=== PATIENT | male | born 1965 | race Caucasian/White ===

== ENCOUNTER 2021-09-12 07:58 | Day surgery (SDC) | payer BC ==
[2021-09-12] MEDS ORDERED: Sodium Chloride 0.9(Preservative Free) 10 ML IJ ONE (07:59)
[2021-09-12] MEDS ORDERED: XYLOCAINE-MPF 1% 5ML SDV IJ ONE (07:59)
[2021-09-12] MEDS ORDERED: Depo-Medrol 40 MG/ML IM ONE (07:59)
[2021-09-12] MEDS ORDERED: DIPRIVAN 200 MG/20 ML IV ONE (10:17)
[2021-09-12] MEDS ORDERED: Lactated Ringers 1,000 ML IV ONE (10:53)
--- NOTE | 2021-09-12 12:00 | XRAY ---
Indication: Lumbar CECI. Intraoperative fluoroscopy provided for 18 seconds. 2 digital spot images submitted for interpretation demonstrate midline posterior needle tip just posterior to L3-L4 interspace. Small amount of contrast injected for needle tip placement. Correlate with intraoperative findings/report.
--- NOTE | 2021-09-12 12:08 | XRAY ---
18 seconds of fluoroscopy was used in surgery for a lumbar CECI.
== END 2021-09-12 10:41 | disposition home or self-care (01) ==
LOC: SDC-PAIN 07:58
PROVIDERS: ATTEND Psychiatry & Neurology Pain Medicine
DX: M54.16 Radiculopathy, lumbar region (principal); E11.9 Type 2 diabetes mellitus without complications; Z79.899 Other long term (current) drug therapy
CPT/HCPCS: 62323; 72100; 77003; 82947; J1030; J2704; Q9966

== ENCOUNTER 2021-10-10 07:53 | Day surgery (SDC) | payer BC ==
[2021-10-10] MEDS ORDERED: LIDOCAINE HCL 2% 100 MG/5 ML IJ ONE ×2 (07:54)
[2021-10-10] MEDS ORDERED: DIPRIVAN 200 MG/20 ML IV ONE (09:02)
[2021-10-10] MEDS ORDERED: Lactated Ringers 1,000 ML IV ONE (10:59)
--- NOTE | 2021-10-10 17:22 | XRAY ---
Indication: Bilateral L4-S1 MBB. Intraoperative fluoroscopy provided for 23 seconds. 2 digital spot image submitted for interpretation demonstrates posterior needle tips projecting over the expected left and right L4-S1 nerve roots. Correlate with intraoperative findings/report.
--- NOTE | 2021-10-10 17:44 | XRAY ---
23 seconds of fluoroscopy was used in surgery for a bilateral L4-S1 MBB.
== END 2021-10-10 09:30 | disposition home or self-care (01) ==
LOC: SDC-PAIN 07:53
PROVIDERS: ATTEND Psychiatry & Neurology Pain Medicine
DX: M47.816 Spondylosis without myelopathy or radiculopathy, lumbar region (principal); E11.9 Type 2 diabetes mellitus without complications; Z79.899 Other long term (current) drug therapy
CPT/HCPCS: 64493; 64494; 72020; 77002; 82947; J2704

== ENCOUNTER 2021-11-14 07:31 | Day surgery (SDC) | payer BC ==
[2021-11-14] MEDS ORDERED: Marcaine Mpf 0.5% Vial 30 Ml IJ ONE (07:32)
[2021-11-14] MEDS ORDERED: Depo-Medrol 40 MG/ML IM ONE (07:32)
[2021-11-14] MEDS ORDERED: DIPRIVAN 200 MG/20 ML IV ONE (09:01)
[2021-11-14] MEDS ORDERED: Lactated Ringers 1,000 ML IV ONE (10:12)
--- NOTE | 2021-11-14 19:09 | XRAY ---
Indication: Bilateral L4-S1 MBB. Intraoperative fluoroscopy provided for 17 seconds. Single digital spot image submitted for interpretation demonstrates posterior needle tips projecting over the expected left and right L4-S1 nerve roots. Correlate with intraoperative findings/report.
--- NOTE | 2021-11-14 19:34 | XRAY ---
17 seconds of fluoroscopy was used in surgery for a bilateral L4-S1 MBB.
== END 2021-11-14 09:30 | disposition home or self-care (01) ==
LOC: SDC-PAIN 07:31
PROVIDERS: ATTEND Psychiatry & Neurology Pain Medicine
DX: M47.816 Spondylosis without myelopathy or radiculopathy, lumbar region (principal); E11.9 Type 2 diabetes mellitus without complications; Z79.899 Other long term (current) drug therapy
CPT/HCPCS: 64493; 64494; 72020; 77002; 82947; J1030; J2704

== ENCOUNTER 2021-12-19 07:39 | Day surgery (SDC) | payer BC ==
[2021-12-19] MEDS ORDERED: Xylocaine 1% Vial 30 ML PF IJ ONE (07:40)
[2021-12-19] MEDS ORDERED: Depo-Medrol 40 MG/ML IM ONE (07:40)
[2021-12-19] MEDS ORDERED: BUPIVACAINE 0.5% VIAL IJ ONE (07:40)
[2021-12-19] MEDS ORDERED: DIPRIVAN 200 MG/20 ML IV ONE ×2 (08:55→09:11)
[2021-12-19] MEDS ORDERED: Ketamine HCl 50 MG/ML ONE (09:00)
[2021-12-19] MEDS ORDERED: Lactated Ringers 1,000 ML IV ONE (09:44)
--- NOTE | 2021-12-19 11:05 | XRAY ---
Indication: Left L4-S1 RFA. Intraoperative fluoroscopy provided for 38 seconds. 5 digital spot image submitted for interpretation demonstrates posterior needle tips projecting over the expected left L4-S1 nerve roots. Correlate with intraoperative findings/report.
--- NOTE | 2021-12-19 11:34 | XRAY ---
38 seconds fluoroscopy time in surgery for left L4-S1 RFA.
== END 2021-12-19 09:31 | disposition home or self-care (01) ==
LOC: SDC-PAIN 07:39
PROVIDERS: ATTEND Psychiatry & Neurology Pain Medicine
DX: M47.816 Spondylosis without myelopathy or radiculopathy, lumbar region (principal); E11.9 Type 2 diabetes mellitus without complications; Z79.899 Other long term (current) drug therapy
CPT/HCPCS: 64635; 64636; 72100; 77002; 82947; J1030; J2001; J2704

== ENCOUNTER 2021-12-26 07:21 | Day surgery (SDC) | payer BC ==
[2021-12-26] MEDS ORDERED: BUPIVACAINE 0.5% VIAL IJ ONE (07:22)
[2021-12-26] MEDS ORDERED: Depo-Medrol 40 MG/ML IM ONE (07:22)
[2021-12-26] MEDS ORDERED: Xylocaine 1% Vial 30 ML PF IJ ONE (07:22)
[2021-12-26] MEDS ORDERED: DIPRIVAN 200 MG/20 ML IV ONE ×2 (08:48→08:55)
--- NOTE | 2021-12-26 09:50 | XRAY ---
Indication: Right L4-S1 RFA. Intraoperative fluoroscopy provided for 32 seconds. 5 digital spot images submitted for interpretation demonstrates posterior needle tips projecting over the right L4-S1 nerve roots. Correlate with intraoperative findings/report.
[2021-12-26] MEDS ORDERED: Lactated Ringers 1,000 ML IV ONE (10:02)
--- NOTE | 2021-12-26 12:32 | XRAY ---
32 seconds of fluoroscopy was used in surgery for a right L4-S1 RFA.
== END 2021-12-26 09:15 | disposition home or self-care (01) ==
LOC: SDC-PAIN 07:21
PROVIDERS: ATTEND Psychiatry & Neurology Pain Medicine
DX: M47.816 Spondylosis without myelopathy or radiculopathy, lumbar region (principal); E11.9 Type 2 diabetes mellitus without complications; Z79.899 Other long term (current) drug therapy
CPT/HCPCS: 64635; 64636; 72100; 77002; 82947; J1030; J2001; J2704

== ENCOUNTER 2022-01-31 07:55 | Day surgery (SDC) | payer BC ==
[2022-01-31] MEDS ORDERED: Depo-Medrol 40 MG/ML IM ONE (07:56)
[2022-01-31] MEDS ORDERED: Sodium Chloride 0.9(Preservative Free) 10 ML IJ ONE (07:56)
[2022-01-31] MEDS ORDERED: Ketamine HCl 50 MG/ML ONE (10:22)
[2022-01-31] MEDS ORDERED: DIPRIVAN 200 MG/20 ML IV ONE (10:22)
[2022-01-31] MEDS ORDERED: Lactated Ringers 1,000 ML IV ONE (10:30)
--- NOTE | 2022-01-31 12:40 | XRAY ---
28 seconds fluoroscopy time in surgery for left L3-L5 transforaminal CECI.
== END 2022-01-31 10:50 | disposition home or self-care (01) ==
LOC: SDC-PAIN 07:55
PROVIDERS: ATTEND Psychiatry & Neurology Pain Medicine
DX: M54.16 Radiculopathy, lumbar region (principal); E11.9 Type 2 diabetes mellitus without complications; Z79.899 Other long term (current) drug therapy
CPT/HCPCS: 64483; 64484; 72100; 77003; 82947; J1030; J2704; Q9966

== ENCOUNTER 2022-03-06 06:22 | Day surgery (SDC) | payer BC ==
[2022-03-06] MEDS ORDERED: Sodium Chloride 0.9(Preservative Free) 10 ML IJ ONE (06:23)
[2022-03-06] MEDS ORDERED: LIDOCAINE HCL 1% 50 MG/5 ML VL PF IJ ONE (06:23)
[2022-03-06] MEDS ORDERED: Depo-Medrol 40 MG/ML IM ONE (06:23)
[2022-03-06] MEDS ORDERED: DIPRIVAN 200 MG/20 ML IV ONE (08:37)
[2022-03-06] MEDS ORDERED: Xylocaine-Mpf 2% 5 Ml Vial ONE (08:37)
--- NOTE | 2022-03-06 09:52 | XRAY ---
Indication: Lumbar CECI. Intraoperative fluoroscopy provided for 18 seconds. 2 digital spot images submitted for interpretation demonstrates needle tip projecting posterior to L4-L5 interspace. Small amount of contrast injected for needle tip placement. Correlate with intraoperative findings/report.
--- NOTE | 2022-03-06 09:54 | XRAY ---
18 seconds of fluoroscopy was used in surgery for a lumbar CECI.
[2022-03-06] MEDS ORDERED: Lactated Ringers 1,000 ML IV ONE (13:09)
== END 2022-03-06 09:10 | disposition home or self-care (01) ==
LOC: SDC-PAIN 06:22
PROVIDERS: ATTEND Psychiatry & Neurology Pain Medicine
DX: M54.16 Radiculopathy, lumbar region (principal); E11.9 Type 2 diabetes mellitus without complications; Z79.899 Other long term (current) drug therapy
CPT/HCPCS: 62323; 72100; 77003; 82947; J1030; J2001; J2704; Q9966

== ENCOUNTER 2022-05-15 06:30 | Day surgery (SDC) | payer BC ==
[2022-05-15] MEDS ORDERED: Depo-Medrol 40 MG/ML IM ONE (06:31)
[2022-05-15] MEDS ORDERED: Sodium Chloride 0.9(Preservative Free) 10 ML IJ ONE (06:31)
[2022-05-15] MEDS ORDERED: LIDOCAINE HCL 1% 50 MG/5 ML VL PF IJ ONE (06:31)
[2022-05-15] MEDS ORDERED: DIPRIVAN 200 MG/20 ML IV ONE (08:30)
--- NOTE | 2022-05-15 10:22 | XRAY ---
Indication: Lumbar CECI. Intraoperative fluoroscopy provided for 14 seconds. 2 digital spot image submitted for interpretation demonstrates posterior needle tip projecting just posterior to lumbosacral junction interspace. Small amount of contrast injected for needle tip placement. Correlate with intraoperative findings/report.
--- NOTE | 2022-05-15 12:44 | XRAY ---
14 seconds of fluoroscopy was used in surgery for a lumbar CECI.
[2022-05-15] MEDS ORDERED: Lactated Ringers 1,000 ML IV ONE (13:12)
== END 2022-05-15 09:00 | disposition home or self-care (01) ==
LOC: SDC-PAIN 06:30
PROVIDERS: ATTEND Psychiatry & Neurology Pain Medicine
DX: M54.16 Radiculopathy, lumbar region (principal); E11.9 Type 2 diabetes mellitus without complications; Z79.899 Other long term (current) drug therapy
CPT/HCPCS: 62323; 72100; 77003; 82947; J1030; J2001; J2704; Q9966